=== PATIENT | male | born 1995 | race Two or more races ===

== ENCOUNTER 2019-01-27 21:35 | Inpatient (IN) | payer MEDICAID ==
[~2019-01-27] VITALS: Ht 175.3 cm; Wt 86.7 kg
[2019-01-27] MEDS ORDERED: LORAZEPAM MDV 2MG/ML 50 MG in SODIUM CHL 0.9% 25 ML IV ONE (22:15)
[2019-01-27] MEDS ORDERED: FOLIC ACID 1 MG, MULTIPLE VITAMIN 10 ML, MAGNESIUM SULF SDV 50% 8 MEQ, THIAMINE INJ 100... INJ STA ×5 (22:20)
[2019-01-27 22:28] LABS: Alanine Aminotransferase 18 U/L (16-61); Albumin 3.1 g/dL (3.4-5.0); Anion Gap 8 (5-15); Aspartate Aminotransferase 12 U/L (15-37); BUN/Creatinine Ratio 9.6; Blood Urea Nitrogen 10 mg/dL (7-18); Calcium 8.2 mg/dL (8.5-10.1); Carbon Dioxide 24 mmol/L (21-32); Chloride 106 mmol/L (98-107); GFR African American 114 mL/min; GFR Non-African American 94 mL/min; Glucose 107 mg/dL (74-106); Potassium 3.7 mmol/L (3.5-5.1); Sodium 138 mmol/L (136-145)
[2019-01-27] MEDS ORDERED: THIAMINE 100mg/ml INJ (200mg/2ml VIAL) IV ONE (22:30)
[2019-01-27] MEDS ORDERED: LORazepam 2MG/ML-1ML VIAL IV ONE (22:30)
[2019-01-27 22:33] LABS: Alkaline Phosphatase 93 U/L (45-117); Bilirubin, Total 0.5 mg/dL (0.2-1.0); Total Protein 6.8 g/dL (6.4-8.2)
[2019-01-27 22:37] LABS: Basophils # (auto) 0 uL; Basophils % (auto) 0.1 % (0.0-2.0); Eosinophils # (auto) 0 uL; Hematocrit 43.7 % (41.0-53.0); Hemoglobin 14.7 g/dL (13.5-17.5); Lymphocytes # (auto) 1.3 uL; Lymphocytes % (auto) 5.9 % (10.0-50.0); Mean Corpuscular Hemoglobin 29.8 pg (28.0-32.0); Mean Corpuscular Hgb Conc. 33.7 g/dL (32.0-36.0); Mean Corpuscular Volume 88.4 fL (80.0-100.0); Monocytes # (auto) 0.7 uL; Neutrophils # (auto) 20.6 uL; Platelet Count (auto) 241 10^3/uL (140-450); Red Blood Cells 4.95 10^6/uL (4.5-5.90); Red Cell Distribution Width 13.9 % (11.8-14.3); White Blood Cell 22.6 10^3/uL (4.4-10.8)
[2019-01-27] MEDS ORDERED: SODIUM CHLORIDE 0.9% 1,000 ML IV ONE (23:00)
[2019-01-27] MEDS ORDERED: cefTRIAXone 1GM/50ML D5W 50 ML IV ONE (23:00)
[2019-01-27] MEDS ORDERED: LEVOFLOXACIN 750MG 150 ML IV ONE (23:00)
[2019-01-27] MEDS ORDERED: ALBUTEROL SULF 2.5 MG/0.5ML(0.5%) NEB SOLN NEB ONE (23:00)
[2019-01-27] MEDS ORDERED: IPRATROPIUM BROM 0.5 MG/2.5ML INH SOL NEB ONE (23:00)
[2019-01-28] VITALS (9 sets, daily range): BP systolic 91–136; BP diastolic 51–68
[2019-01-28] MEDS ORDERED: AZITHROMYCIN 500MG/ 250ML 250 ML IV ONE (00:15)
[2019-01-28] MEDS ORDERED: TEMAZEPAM 15 MG CAP PO PRN (00:15)
[2019-01-28] MEDS ORDERED: ALBUTEROL SULF 2.5 MG/0.5ML(0.5%) NEB SOLN NEB PRN (00:15)
[2019-01-28] MEDS ORDERED: ONDANSETRON HCL 4 MG/2 ML VIAL IV PRN (00:15)
[2019-01-28] MEDS ORDERED: ACETAMINOPHEN 325 MG TAB PO PRN (00:15)
[2019-01-28 02:22] LABS: Urine Bacteria FEW /hpf (None Seen); Urine Blood Negative /uL (Negative); Urine Specific Gravity 1.009 (1.001-1.035); Urine WBC 5 /hpf (0 - 3)
[2019-01-28 02:33] LABS: Alcohol, Urine < 3.0 mg/dL (0-5); Amphetamine Screen, Urine POSITIVE (NEGATIVE); Barbiturate Scree,Urine NEGATIVE (NEGATIVE); Benzodiazephine Screen, Urine NEGATIVE (NEGATIVE); Cannabinoid Screen, Urine NEGATIVE (NEGATIVE); Cocaine Screen, Urine NEGATIVE (NEGATIVE); Opiate Scree,Urine NEGATIVE (NEGATIVE); Phencyclidine Screen, Urine NEGATIVE (NEGATIVE)
--- NOTE | 2019-01-28 02:45 | NUR ---
MS admit from ER BELLALBERT admitted to tele/MS after SBAR received. Patient oriented to Fifi Mayorga, primary RN, unit, room, bed, and unit policies regarding patient care and visiting hours. Patient weighed by bed scale and encouraged to call if they need something. All questions and concerns addressed, patient verbalized understanding. IV ACCESS IS SL 18G TO LEFT AC INSERTED ON 01/27/19 IN THE ER. PATIENT PLACED ON 2L NC SAT 02 IS 93%. PATIENT IS MOANING IN BED. LIVE-IN GIRLFRIEND ROBERT IS AT BEDSIDE AND ASSISTS WITH HEALTH HX. AND PROVIDES PATIENT'S MOTHER CONTACT INFO. WILL CONTINUE TO MONITOR Q1H AND PRN.
--- NOTE | 2019-01-28 07:07 | NUR ---
Opening Shift Note Assumed care of patient, awake and alert. No S/S of distress/SOB or pain. Instructed on POC and to call for assist PRN, will continue to monitor for changes Q1hr and PRN. Bed set in lowest locked position with side rails up x 2 for safety.
[2019-01-28] MEDS: cefTRIAXone 1GM/50ML D5W 50 ML IV SCH (09:17)
--- NOTE | 2019-01-28 09:43 | NUR ---
Respiratory note: AT BEDSIDE TO ASSESS PT FOR PRN TX. PT AWAKE, ALERT AND RESPONSIVE. BS ARE DIMINISHED THROUGHOUT. SPO2 93% ON 2LPM NC. HR 91. RR 20. NO TREATMENT INDICATED AT THIS TIME. MADE PT AWARE IF HE BECOMES SOB TO PUSH CALL BUTTON AND RT WILL BE PAGED. WILL CONTINUE TO MONITOR NEEDED.
[2019-01-28] MEDS: methylPREDNISolone SOD SUCC 125 MG/2 ML VL IV SCH ×2 (10:14→22:31)
[2019-01-28] MEDS: FAMOTIDINE 20 MG TAB PO SCH ×2 (10:14→22:31)
[2019-01-28] MEDS: AZITHROMYCIN 500MG/ 250ML 250 ML IV SCH (10:14)
[2019-01-28] MEDS ORDERED: FOLIC ACID 1 MG, MULTIPLE VITAMIN 10 ML, MAGNESIUM SULF SDV 50% 8 MEQ, THIAMINE INJ 100... INJ SCH ×5 (12:00)
[2019-01-28] MEDS: ALBUTEROL SULF 2.5 MG/0.5ML(0.5%) NEB SOLN NEB SCH (19:09)
--- NOTE | 2019-01-28 19:15 | NUR ---
OPENING NOTE- NOC SHIFT PATIENT IS RESTING IN BED. BED IS LOCKED AT LOWEST, BED RAILS UP X2. BEDSIDE TABLE AND CALL LIGHT WITHIN REACH. INSTRUCTED PATIENT TO CALL PRN. NO S/SX OF DISTRESS OR SOB.
--- NOTE | 2019-01-28 19:16 | NUR ---
Endorsed care to NOC RN.
--- NOTE | 2019-01-29 | NUR ---
ROUNDS PATIENT COMFORTABLE IN BED EYES CLOSED. RESPIRATIONS ARE EVEN AND UNLABORED. NO S/SX OF DISTRESS, SOB OR PAIN.
[2019-01-29] MEDS: ALBUTEROL SULF 2.5 MG/0.5ML(0.5%) NEB SOLN NEB SCH ×3 (00:43→11:10)
[2019-01-29] MEDS ORDERED: SODIUM CHLORIDE 0.9 % NEB SOLN 3ML NEB ONE ×2 (05:25→10:40)
[2019-01-29 05:40] VITALS: BP 129/64
[2019-01-29 06:49] LABS: Hematocrit 41.1 % (41.0-53.0); Hemoglobin 13.9 g/dL (13.5-17.5); Mean Corpuscular Hgb Conc. 33.9 g/dL (32.0-36.0); Mean Corpuscular Volume 88.4 fL (80.0-100.0); Platelet Count (auto) 242 10^3/uL (140-450); Red Blood Cells 4.65 10^6/uL (4.5-5.90); Red Cell Distribution Width 13.9 % (11.8-14.3); White Blood Cell 24.6 10^3/uL (4.4-10.8)
[2019-01-29 07:08] LABS: BUN/Creatinine Ratio 11.7; Calcium 9.3 mg/dL (8.5-10.1); Potassium 4.3 mmol/L (3.5-5.1)
[2019-01-29 07:33] LABS: Basophils % (manual) 0 (0.0-2.0); Blast Cells 0; Eosinophils % (manual) 0 (0-7); Metamyelocytes % 0; Myelocytes % 0; Promyelocytes % 0; Reactive Lymphocytes 0
--- NOTE | 2019-01-29 07:34 | NUR ---
CLOSING NOTE- NOC SHIFT ENDORSED PATIENT CARE TO DAY SHIFT NURSE [place] GALVEZ. NO S/SX OF DISTRESS, SOB OR PAIN.
[2019-01-29 08:43] LABS: Band Neutrophils % (manual) 10; Lymphocytes % (manual) 2 (10.0-50.0); Monocytes % (manual) 7 (0-12)
[2019-01-29 09:00] VITALS: BP 122/67
[2019-01-29] MEDS: cefTRIAXone 1GM/50ML D5W 50 ML IV SCH (09:11)
[2019-01-29] MEDS: AZITHROMYCIN 500MG/ 250ML 250 ML IV SCH (10:02)
[2019-01-29] MEDS: FAMOTIDINE 20 MG TAB PO SCH (10:02)
[2019-01-29] MEDS: methylPREDNISolone SOD SUCC 125 MG/2 ML VL IV SCH (10:02)
[2019-01-29] MEDS ORDERED: LEVO750T64 PO (12:16)
--- NOTE | 2019-01-29 13:12 | NUR ---
NOTED PT CURSING AND APPEARED ANGRY HE WALKED DOWN THE FREY, STATED, " IM GOING OUTSIDE FOR A BIT" INFORMED PT HE MUST SIGN AMA TO SMOKE. PT STATED, "OH I WONT SMOKE". PT HAS BEEN GONE APPROX. 20 MINUTES NOW. SECURITY ALERTED. 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
[2019-01-29 13:44] VITALS: BP 122/67
--- NOTE | 2019-01-29 15:39 | NUR ---
[facility] OFFICE NOTIFIED THAT PT WAS GONE WITH IV IN PLACE. PT RETURNED TO FACILITY APPROX. 1500. IV REMOVED, PAPERWORK SIGNED AND GIVEN TO PT. INFORMED PT RX IN PHARMACY. PT VERBALIZED UNDERSTANDING. AMBULATED OUT OF FACILITY AT APPROX. 1530.
== END 2019-01-29 16:26 | disposition home or self-care (01) | DRG 720 ==
LOC: ER 21:35 → OVERFLOW 21:36 → WEST WING 01-28 02:53
PROVIDERS: ADMIT Nurse Practitioner; ATTEND Hospitalist
DX: A41.9 Sepsis, unspecified organism (principal); J18.1 Lobar pneumonia, unspecified organism; E86.0 Dehydration; F12.90 Cannabis use, unspecified, uncomplicated; R06.03 Acute respiratory distress; J45.909 Unspecified asthma, uncomplicated; R09.1 Pleurisy; F19.10 Other psychoactive substance abuse, uncomplicated; S27.309A Unspecified injury of lung, unspecified, initial encounter; T43.625A Adverse effect of amphetamines, initial encounter; X58.XXXA Exposure to other specified factors, initial encounter; Y93.89 Activity, other specified; Y92.89 Other specified places as the place of occurrence of the external cause; Y99.8 Other external cause status
CPT/HCPCS: 36415; 71045; 80048; 80053; 80307; 81001; 83605; 84484; 85007; 85025; 85027; 85379; 87040; 93005; 94640; 96365; 96366; 96367; 96375; G0378; J0696; J1956